=== PATIENT | male | born 1985 | race Caucasian/White ===

== ENCOUNTER 2017-02-09 13:37 | Emergency (ER) | payer SELFPAY ==
[~2017-02-09] VITALS: Ht 185.4 cm; Wt 109.1 kg
[2017-02-09] MEDS ORDERED: FOLI1 PO (13:59)
[2017-02-09] MEDS ORDERED: METH2.5 PO (13:59)
[2017-02-09] MEDS ORDERED: ADAL40PE SQ (13:59)
[2017-02-09] MEDS ORDERED: POTA8CAP17 PO (13:59)
[2017-02-09] MEDS ORDERED: PRED10 PO (13:59)
[2017-02-09] MEDS ORDERED: INSU100C14 SQ (13:59)
[2017-02-09 14:07] LABS: GLUCOSE,POINT OF CARE 142 MG/DL (70-110)
[2017-02-09] MEDS ORDERED: GABAPENTIN 100 MG CAPSULE PO ONE (15:45)
[2017-02-09] MEDS ORDERED: CloNIDine HCL 0.2 MG TABLET PO ONE ×2 (15:45→16:45)
[2017-02-09 16:04] LABS: BASOPHILS % (AUTO) 0.7 % (0.0-2.0); EOSINOPHILS % (AUTO) 1.7 % (1.0-6.0); HEMATOCRIT 43.1 % (41-53); HEMOGLOBIN 13.8 g/dL (13.5-17.5); LYMPHOCYTES # (AUTO) 3.8 K/uL (1.0-4.8); LYMPHOCYTES % (AUTO) 26.1 % (22.0-44.0); MEAN CORPUSCULAR HEMOGLOBIN 26.5 pg (26.0-34.0); MEAN CORPUSCULAR VOLUME 83 fL (80-100); MONOCYTES # (AUTO) 0.8 K/uL (0.1-1.0); MONOCYTES % (AUTO) 5.5 % (2.0-9.0); NEUTROPHILS # (AUTO) 9.5 K/uL (1.8-7.7); PLATELET COUNT (AUTO) 373 K/uL (150-450); RED BLOOD CELL COUNT(AUTO) 5.21 MIL/uL (4.50-5.90); RED CELL DISTRIBUTION WIDTH 17.1 % (11.5-14.5); WHITE BLOOD COUNT (AUTO) 14.4 K/uL (4.5-11.0)
[2017-02-09 16:05] LABS: RBC MORPHOLOGY COMMENT ABNORMAL RBC MORPH
[2017-02-09 16:12] LABS: ANION GAP 12 mmol/L (8-16); CALCIUM, TOTAL 8.7 mg/dL (8.8-10.5); CARBON DIOXIDE 25 mmol/L (22-29); CHLORIDE 103 mmol/L (98-107); CREATININE 1.28 mg/dL (0.60-1.30); GLOMERULAR FILTR. RATE CALC > 60 mL/min (>60); SODIUM SERUM 140 mmol/L (136-145); UREA NITROGEN, BLOOD 16 mg/dL (7-18)
[2017-02-09 16:40] LABS: ALANINE AMINOTRANSFERASE 22 U/L (12-78); ALBUMIN 3.1 g/dL (3.4-5.0); ASPARTATE AMINOTRANSFERASE 12 U/L (15-37); BILIRUBIN,TOTAL 0.3 mg/dL (0.1-1.0); CREATINE KINASE, TOTAL 112 U/L (39-308); TOTAL PROTEIN, SERUM 7.8 g/dL (6.4-8.2)
[2017-02-09 16:46] VITALS: BP 136/85
[2017-02-09] MEDS ORDERED: ClonazePAM 1 MG TABLET PO ONE (17:15)
[2017-02-09 17:19] LABS: APPEARANCE,URINE CLOUDY (CLEAR); GLUCOSE, URINE (UA) NEGATIVE (NEGATIVE); KETONES,URINE NEGATIVE (NEGATIVE); LEUKOCYTE ESTERASE ,URINE NEGATIVE (NEGATIVE); OCCULT BLOOD,URINE NEGATIVE (NEGATIVE); PROTEIN,URINE POS 1+ (NEGATIVE)
[2017-02-09 17:22] LABS: ADD UA MICROSCOPIC YES
[2017-02-09 17:25] LABS: RBC,URINE None Seen /HPF (0-2); WBC,URINE 0-2 /HPF (0-5)
[2017-02-09 17:27] LABS: SQUAMOUS EPITHELIAL CELL,UR Rare /LPF (None Seen)
[2017-02-09 17:28] LABS: HYALINE CASTS, URINE 26-50 /LPF (None Seen)
== END 2017-02-09 17:41 | disposition home or self-care (01) ==
LOC: EMS 13:39
DX: F11.23 Opioid dependence with withdrawal (principal); R11.2 Nausea with vomiting, unspecified; R68.83 Chills (without fever)
CPT/HCPCS: 82962; 93005; 99285